=== PATIENT | male | born 1965 | race Caucasian/White ===

== ENCOUNTER 2023-06-19 15:26 | Inpatient (IN) | payer OTHER ==
[2023-06-19 16:51] LABS: BASO % 0.3 % (0-2.0); EOS % 0.9 % (0-4.5); HEMATOCRIT 47.7 % (35.4-49); HEMOGLOBIN 15.5 GM/dL (11.7-16.9); LYMPH % 16.1 % (8-40); MCHC 32.6 g/dl (32.0-35.9); MEAN CELL VOLUME 79.9 fl (80-96); MEAN PLT VOLUME 9.3 fl (7.5-11.1); MONO % 3.8 % (3.8-10.2); NEUT % 78.9 % (42.8-82.8); PLATELET COUNT 306 10^3/uL (134-434); RBC 5.97 M/mm3 (4.00-5.60); RDW 17.4 % (11.9-15.9); WHITE BLOOD COUNT 10.2 K/mm3 (4.0-10.0)
[2023-06-19 17:06] LABS: CALCIUM 9.1 mg/dL (8.5-10.1)
[2023-06-19 17:07] LABS: ALBUMIN 3.1 g/dl (3.4-5.0); BLOOD UREA NITROGEN 32.1 mg/dL (7-18)
[2023-06-19 17:10] LABS: CREATININE 0.9 mg/dL (0.55-1.3)
[2023-06-19 17:11] LABS: BILIRUBIN,TOTAL 1.4 mg/dL (0.2-1)
[2023-06-19 17:12] LABS: TOT PROT 6.6 g/dl (6.4-8.2)
[2023-06-19 17:15] LABS: N-TERMINAL BNP 3427.3 pg/ml (5-125)
[2023-06-19 17:20] LABS: EPI CELLS 17 /uL (0-25.1); HYALINE CASTS 2 /uL (0-3.1); URINE APPEARANCE CLEAR; URINE BACTERIA 3 /uL (0-1359); URINE BILIRUBIN NEGATIVE (NEGATIVE); URINE COLOR DK YELLOW; URINE GLUCOSE (UA) NEGATIVE (NEGATIVE); URINE KETONE TRACE (NEGATIVE); URINE LEUK ESTERASE 1+ (NEGATIVE); URINE NITRITE NEGATIVE (NEGATIVE); URINE PROTEIN 1+ (NEGATIVE); URINE RBC 13 /uL (0-23.9); URINE WBC 30 /uL (0-25.8)
[2023-06-19] MEDS ORDERED: FUROSEMIDE 40 MG/4 ML INJECTABLE VIAL IVPUSH ONE (17:47)
[2023-06-19] MEDS ORDERED: ASPIRIN 325 MG TABLET PO ONE (17:48)
[2023-06-19] MEDS ORDERED: ASPIRIN 81 MG CHEWABLE TABLETS ONE (18:00)
[2023-06-19] MEDS ORDERED: FUROSEMIDE 40 MG/4 ML INJECTABLE VIAL ONE (18:00)
[2023-06-20 06:51] LABS: BASO % 0.8 % (0-2.0); HEMATOCRIT 47.7 % (35.4-49); HEMOGLOBIN 15.1 GM/dL (11.7-16.9); LYMPH % 24.4 % (8-40); MCH 25.9 pg (25.7-33.7); MCHC 31.6 g/dl (32.0-35.9); MONO % 4.5 % (3.8-10.2); NEUT % 67.3 % (42.8-82.8); PLATELET COUNT 302 10^3/uL (134-434); RBC 5.82 M/mm3 (4.00-5.60); RDW 17.4 % (11.9-15.9); WHITE BLOOD COUNT 8.6 K/mm3 (4.0-10.0)
[2023-06-20 07:10] LABS: POTASSIUM 4.6 mmol/L (3.5-5.1)
[2023-06-20 07:16] LABS: CALCIUM 8.8 mg/dL (8.5-10.1)
[2023-06-20 07:17] LABS: ALBUMIN 2.9 g/dl (3.4-5.0)
[2023-06-20 07:19] LABS: CREATININE 0.9 mg/dL (0.55-1.3)
[2023-06-20 07:22] LABS: BILIRUBIN,TOTAL 1.8 mg/dL (0.2-1)
[2023-06-20] MEDS ORDERED: FUROSEMIDE 40 MG/4 ML INJECTABLE VIAL ONE (09:00)
[2023-06-20] MEDS ORDERED: ENOXAPARIN NA (PORCINE) 40 MG/0.4 ML DISP.SYRIN SQ ONE (09:00)
[2023-06-20] MEDS: FUROSEMIDE 40 MG/4 ML INJECTABLE VIAL IVPUSH SCH (09:14)
[2023-06-20] MEDS ORDERED: ENOXAPARIN NA (PORCINE) 40 MG/0.4 ML DISP.SYRIN SQ SCH (10:00)
[2023-06-20 18:01] VITALS: BMI 26.4
[2023-06-20] MEDS: CARVEDILOL 3.125 MG TABLET (FP) PO SCH ×2 (18:18→22:38)
[2023-06-20] MEDS: SACUBITRIL/VALSARTAN 24 MG-26 MG TABLET PO SCH ×2 (18:19→21:28)
[2023-06-20] MEDS: ENOXAPARIN NA (PORCINE) 80 MG/0.8 ML DISP.SYRIN SQ SCH (22:43)
[2023-06-21] MEDS: ENOXAPARIN NA (PORCINE) 80 MG/0.8 ML DISP.SYRIN SQ SCH ×2 (09:31→21:33)
[2023-06-21] MEDS: FUROSEMIDE 40 MG/4 ML INJECTABLE VIAL IVPUSH SCH (09:31)
[2023-06-21] MEDS: SACUBITRIL/VALSARTAN 24 MG-26 MG TABLET PO SCH ×2 (09:31→21:33)
[2023-06-21] MEDS: CARVEDILOL 3.125 MG TABLET (FP) PO SCH ×2 (12:13→21:33)
[2023-06-21] MEDS ORDERED: PANTOPRAZOLE 40 MG TABLET PO ONE (12:45)
[2023-06-22] MEDS: ENOXAPARIN NA (PORCINE) 80 MG/0.8 ML DISP.SYRIN SQ SCH ×2 (09:45→22:09)
[2023-06-22] MEDS: FUROSEMIDE 40 MG/4 ML INJECTABLE VIAL IVPUSH SCH (09:45)
[2023-06-22] MEDS: CARVEDILOL 3.125 MG TABLET (FP) PO SCH (09:45)
[2023-06-22] MEDS: SACUBITRIL/VALSARTAN 24 MG-26 MG TABLET PO SCH ×2 (09:45→22:09)
[2023-06-22 11:01] LABS: BASO % 0.5 % (0-2.0); EOS % 3.3 % (0-4.5); HEMATOCRIT 45.2 % (35.4-49); HEMOGLOBIN 14.7 GM/dL (11.7-16.9); LYMPH % 27.5 % (8-40); MCH 26.2 pg (25.7-33.7); MCHC 32.6 g/dl (32.0-35.9); MEAN CELL VOLUME 80.4 fl (80-96); MEAN PLT VOLUME 9.6 fl (7.5-11.1); NEUT % 62.7 % (42.8-82.8); PLATELET COUNT 306 10^3/uL (134-434); RBC 5.63 M/mm3 (4.00-5.60); RDW 17.3 % (11.9-15.9); WHITE BLOOD COUNT 6.5 K/mm3 (4.0-10.0)
[2023-06-22 11:19] LABS: POTASSIUM 4.6 mmol/L (3.5-5.1)
[2023-06-22 11:24] LABS: CALCIUM 8.5 mg/dL (8.5-10.1)
[2023-06-22 11:25] LABS: ALBUMIN 2.7 g/dl (3.4-5.0); BLOOD UREA NITROGEN 28.2 mg/dL (7-18)
[2023-06-22 11:28] LABS: CREATININE 0.9 mg/dL (0.55-1.3)
[2023-06-22 11:29] LABS: BILIRUBIN,TOTAL 0.6 mg/dL (0.2-1); TOT PROT 5.8 g/dl (6.4-8.2)
[2023-06-22] MEDS ORDERED: INSULIN (NOVOLOG) ASPART 100 UNITS/ML 10ML VIAL ONE ×2 (11:56→17:17)
[2023-06-22] MEDS: INSULIN SLIDING SCALE (NOVOLOG) 1 VIAL SQ SCH ×3 (12:09→23:12)
[2023-06-22] MEDS: SERTRALINE HCL 50 MG TABLET (FP) PO SCH (12:09)
[2023-06-22 13:08] LABS: HEPATITIS B SURFACE AG MATERN NON-REACTIVE (NONREACTIVE)
[2023-06-22] MEDS: CARVEDILOL 6.25 MG TABLET (FP) PO SCH (22:09)
[2023-06-23] MEDS: INSULIN SLIDING SCALE (NOVOLOG) 1 VIAL SQ SCH ×4 (06:30→21:00)
[2023-06-23 08:56] LABS: POTASSIUM 5.1 mmol/L (3.5-5.1)
[2023-06-23 09:01] LABS: CALCIUM 8.2 mg/dL (8.5-10.1)
[2023-06-23 09:02] LABS: ALBUMIN 2.6 g/dl (3.4-5.0); MAGNESIUM 2.2 mg/dL (1.8-2.4)
[2023-06-23 09:05] LABS: CREATININE 0.9 mg/dL (0.55-1.3)
[2023-06-23 09:06] LABS: TOT PROT 5.4 g/dl (6.4-8.2)
[2023-06-23 09:07] LABS: BILIRUBIN,TOTAL 0.7 mg/dL (0.2-1)
[2023-06-23] MEDS: ENOXAPARIN NA (PORCINE) 80 MG/0.8 ML DISP.SYRIN SQ SCH ×2 (09:31→21:01)
[2023-06-23] MEDS: CARVEDILOL 6.25 MG TABLET (FP) PO SCH ×2 (09:31→21:01)
[2023-06-23] MEDS: FUROSEMIDE 40 MG/4 ML INJECTABLE VIAL IVPUSH SCH (09:31)
[2023-06-23] MEDS: SERTRALINE HCL 50 MG TABLET (FP) PO SCH (09:31)
[2023-06-23] MEDS: SACUBITRIL/VALSARTAN 24 MG-26 MG TABLET PO SCH ×2 (09:31→21:01)
[2023-06-23] MEDS: SPIRONOLACTONE 25 MG TABLET PO SCH (09:31)
[2023-06-23] MEDS ORDERED: INSULIN (NOVOLOG) ASPART 100 UNITS/ML 10ML VIAL ONE (20:55)
[2023-06-24] MEDS: INSULIN SLIDING SCALE (NOVOLOG) 1 VIAL SQ SCH ×4 (06:33→22:08)
[2023-06-24] MEDS: ENOXAPARIN NA (PORCINE) 80 MG/0.8 ML DISP.SYRIN SQ SCH ×2 (09:47→22:08)
[2023-06-24] MEDS: FUROSEMIDE 40 MG/4 ML INJECTABLE VIAL IVPUSH SCH (09:48)
[2023-06-24] MEDS: SERTRALINE HCL 50 MG TABLET (FP) PO SCH (09:48)
[2023-06-24] MEDS: CARVEDILOL 6.25 MG TABLET (FP) PO SCH ×2 (09:48→22:08)
[2023-06-24] MEDS: SACUBITRIL/VALSARTAN 24 MG-26 MG TABLET PO SCH ×2 (09:48→22:08)
[2023-06-24] MEDS: SPIRONOLACTONE 25 MG TABLET PO SCH (09:48)
[2023-06-24 15:09] VITALS: RESP 18
[2023-06-24] MEDS ORDERED: INSULIN (NOVOLOG) ASPART 100 UNITS/ML 10ML VIAL ONE ×2 (18:16→21:28)
[2023-06-25] MEDS: INSULIN SLIDING SCALE (NOVOLOG) 1 VIAL SQ SCH ×3 (06:21→16:10)
[2023-06-25] MEDS: CARVEDILOL 6.25 MG TABLET (FP) PO SCH (09:28)
[2023-06-25] MEDS: SPIRONOLACTONE 25 MG TABLET PO SCH (09:28)
[2023-06-25] MEDS: ENOXAPARIN NA (PORCINE) 80 MG/0.8 ML DISP.SYRIN SQ SCH (09:28)
[2023-06-25] MEDS: SERTRALINE HCL 50 MG TABLET (FP) PO SCH (09:28)
[2023-06-25] MEDS: FUROSEMIDE 40 MG/4 ML INJECTABLE VIAL IVPUSH SCH (09:28)
[2023-06-25] MEDS: SACUBITRIL/VALSARTAN 24 MG-26 MG TABLET PO SCH (09:28)
[2023-06-25] MEDS ORDERED: INSULIN (NOVOLOG) ASPART 100 UNITS/ML 10ML VIAL ONE ×2 (11:08→16:10)
[2023-06-25 15:56] VITALS: BP 106/75; PULSE 97; TEMP 98.1
== END 2023-06-25 18:20 | disposition home or self-care (01) | DRG 291 ==
LOC: JER 15:26 → JERBED 17:54 → J4W 06-20 17:48
PROVIDERS: ADMIT Internal Medicine; ATTEND Internal Medicine
DX: I11.0 Hypertensive heart disease with heart failure (principal); I50.23 Acute on chronic systolic (congestive) heart failure; R18.8 Other ascites; I47.29 Other ventricular tachycardia; E11.9 Type 2 diabetes mellitus without complications; F32.A Depression, unspecified; R94.5 Abnormal results of liver function studies; E78.5 Hyperlipidemia, unspecified; I42.0 Dilated cardiomyopathy; K76.9 Liver disease, unspecified
CPT/HCPCS: 36415; 71045-TC-FY; 74177-TC; 76705-TC; 80053; 80061; 81003; 82150; 82550; 82553; 82962; 83036; 83690; 83735; 83880; 84443; 84484; 85025; 86704; 86708; 86709; 86803; 87340; 87517; 93005; 93010; 93306-TC; 99285-25

== ENCOUNTER 2023-06-29 15:58 | Inpatient (IN) | payer OTHER ==
[2023-06-29] MEDS ORDERED: ASPIRIN 81 MG CHEWABLE TABLETS PO ONE (16:43)
[2023-06-29 16:45] VITALS: TEMP 98; BMI 26.3
[2023-06-29] MEDS ORDERED: ASPIRIN 81 MG CHEWABLE TABLETS ONE (16:47)
[2023-06-29 16:55] LABS: BASO % 0.7 % (0-2.0); EOS % 1.4 % (0-4.5); HEMATOCRIT 44.7 % (35.4-49); HEMOGLOBIN 14.6 GM/dL (11.7-16.9); LYMPH % 18.5 % (8-40); MCHC 32.6 g/dl (32.0-35.9); MEAN CELL VOLUME 79.8 fl (80-96); MEAN PLT VOLUME 9.8 fl (7.5-11.1); MONO % 6.4 % (3.8-10.2); PLATELET COUNT 310 10^3/uL (134-434); RDW 16.9 % (11.9-15.9)
[2023-06-29] MEDS ORDERED: SODIUM CHLORIDE 0.9% 500 ML INFUS.BAG IV ONE (16:58)
[2023-06-29 17:02] LABS: INR 1.17 (0.83-1.09); PROTHROMBIN TIME (PATIENT) 13.6 SEC (9.7-13.0)
[2023-06-29 17:05] LABS: ACTIVATED PTT 30.1 SECONDS (25.2-36.5)
[2023-06-29 17:07] LABS: CHLORIDE 106 mmol/L (98-107); SODIUM 138 mmol/L (136-145)
[2023-06-29 17:10] LABS: ALBUMIN 2.8 g/dl (3.4-5.0); ANION GAP 9 MMOL/L (8-16); BLOOD UREA NITROGEN 32.8 mg/dL (7-18); CALCIUM 8.3 mg/dL (8.5-10.1); CO2 23 mmol/L (21-32); GLUCOSE,RANDOM 281 mg/dL (74-106); LIPASE 440 U/L (73-393); MAGNESIUM 2.2 mg/dL (1.8-2.4)
[2023-06-29 17:13] LABS: CREATININE 1.1 mg/dL (0.55-1.3); SGOT/AST 74 U/L (15-37); SGPT/ALT 107 U/L (13-61)
[2023-06-29 17:16] LABS: BILIRUBIN,TOTAL 0.9 mg/dL (0.2-1)
[2023-06-29 17:17] LABS: ALK PHOS 106 U/L (45-117)
[2023-06-29 17:19] LABS: N-TERMINAL BNP 2717.6 pg/ml (5-125)
[2023-06-29 17:58] VITALS: PULSE 80
[2023-06-29 22:47] VITALS: BP 120/76; RESP 20
[2023-06-30] MEDS ORDERED: INSULIN SLIDING SCALE (NOVOLOG) 1 VIAL SQ SCH (07:00)
[2023-06-30] MEDS ORDERED: ENOXAPARIN NA (PORCINE) 40 MG/0.4 ML DISP.SYRIN SQ SCH (10:00)
[2023-06-30] MEDS ORDERED: SPIRONOLACTONE 25 MG TABLET PO SCH (10:00)
[2023-06-30] MEDS ORDERED: SERTRALINE HCL 50 MG TABLET (FP) PO SCH (10:00)
[2023-06-30] MEDS ORDERED: SACUBITRIL/VALSARTAN 24 MG-26 MG TABLET PO SCH (10:00)
== END 2023-06-29 23:40 | disposition left against medical advice (07) | DRG 293 ==
LOC: JER 15:58 → JERBED 16:44
PROVIDERS: ADMIT Internal Medicine; ATTEND Internal Medicine
DX: I11.0 Hypertensive heart disease with heart failure (principal); E78.5 Hyperlipidemia, unspecified; E11.9 Type 2 diabetes mellitus without complications; F32.A Depression, unspecified; I50.9 Heart failure, unspecified; I95.89 Other hypotension
CPT/HCPCS: 0241U-QW; 36415; 71045-TC-FY; 80053; 80307; 83690; 83735; 83880; 84484; 85025; 85610; 85730; 93005; 93010; 99285-25